=== PATIENT | female | born 1945 | race Caucasian/White ===

== ENCOUNTER 2024-11-12 09:28 | Day surgery (SDC) | payer MEDICARE, OTHER ==
[~2024-11-12] VITALS: Ht 152.4 cm; Wt 55.0 kg
[2024-11-12] VITALS (8 sets, daily range): BP systolic 134–190; BP diastolic 50–73; PULSE 53–65; RESP 9–16; TEMP 98.4; O2SAT 95–100
[2024-11-12] MEDS ORDERED: VALS160T30 PO (10:21)
[2024-11-12] MEDS ORDERED: LEVO88TA7 (10:21)
[2024-11-12] MEDS ORDERED: DOXA2TAB2 PO (10:21)
[2024-11-12] MEDS ORDERED: CLON0.1T2 PO (10:21)
[2024-11-12] MEDS ORDERED: GABA-530 PO (10:21)
[2024-11-12] MEDS ORDERED: METO-384 PO (10:23)
[2024-11-12] MEDS ORDERED: SERT-432 PO (10:24)
[2024-11-12] MEDS ORDERED: ASPI81TA52 PO (10:24)
[2024-11-12] MEDS ORDERED: CHOL20002 PO (10:25)
[2024-11-12] MEDS ORDERED: ATOR20TA66 PO (10:29)
[2024-11-12] MEDS ORDERED: FURO20TA4 PO (10:29)
[2024-11-12 10:33] LABS: EOSINOPHILS # (AUTO) 0.2 X10'3 (0-0.9); LYMPHOCYTES # (AUTO) 1.1 X10'3 (1.1-4.8)
[2024-11-12 10:35] LABS: BASOPHILS # (AUTO) 0.1 X10'3 (0-0.2); BASOPHILS % (AUTO) 2.1 % (0-1); EOSINOPHILS % (AUTO) 3.8 % (0-6); MEAN PLATELET VOLUME 9.7 FL (7.4-10.4); MONOCYTES # (AUTO) 0.6 X10'3 (0-0.9); MONOCYTES % (AUTO) 13.4 % (2-12); NEUTROPHILS # (AUTO) 2.6 X10'3 (1.8-7.7); NEUTROPHILS % (AUTO) 56.7 % (42-75); PLATELET COUNT 209 X10'3 (140-440); WHITE BLOOD COUNT 4.6 X10'3 (4.5-11.0)
[2024-11-12 10:41] LABS: ALBUMIN 3.6 G/DL (3.4-5.0); ANION GAP 7 (8-16); BLOOD UREA NITROGEN 39 MG/DL (7-18); BUN/CREATININE RATIO 26.7 (10.0-20.0); CHLORIDE 109 MMOL/L (99-107); CREATININE 1.46 MG/DL (0.40-0.90); GLUCOSE 97 MG/DL (70-104); MAGNESIUM 1.9 MG/DL (1.5-2.4); POTASSIUM 4.9 MMOL/L (3.5-5.1); SODIUM 138 MMOL/L (135-145); TOTAL CARBON DIOXIDE 22.5 MMOL/L (24-32); eCRCL 22 ML/MIN; eGFR 34 ML/MIN
[2024-11-12 10:43] LABS: INR 1.1 INR
[2024-11-12 10:53] LABS: HEMATOCRIT 35.1 % (35.0-45.0); HEMOGLOBIN 11.2 g/dl (12.0-16.0); MEAN CORPUSCULAR VOLUME 107.4 FL (78-98); RED BLOOD COUNT 3.26 X10'6 (4.20-5.60)
[2024-11-12 10:54] LABS: MEAN CORPUSCULAR HEMOGLOBIN 34.5 PG (27.0-31.0); MEAN CORPUSCULAR HGB CONC 32.1 g/dL (33.0-36.5); RED CELL DISTRIBUTION WIDTH 14.1 % (11.5-14.5)
[2024-11-12] MEDS: sodium bicarbonate 1meq/ml syr 150 ML in dextrose 5%-water 1,000 ML IV ONE (11:15)
[2024-11-12] MEDS: diphenhydrAMINE 25mg capsule PO PRN (11:15)
[2024-11-12] MEDS: normal saline 1,000 ML IV SCH (11:17)
[2024-11-12] MEDS ORDERED: midazolam 1 mg/ML 2ml injection ONE (13:19)
[2024-11-12] MEDS ORDERED: LIDOcaine 1% 30ml preserv. free vial ONE (13:19)
[2024-11-12] MEDS ORDERED: iohexol 350 MG/ML 50ML vial IV ONE (13:20)
[2024-11-12] MEDS ORDERED: heparin 1,000unit/ml 10ml vial 10 ML ONE (13:20)
[2024-11-12] MEDS ORDERED: fentaNYL/PF 50MCG/1 ML 2ML syringe ONE (13:20)
[2024-11-12] MEDS ORDERED: iohexol 350MG/ML 100ml bottle IV ONE (13:20)
[2024-11-12] MEDS ORDERED: protamine sulfate 10mg/ml inj. ONE (14:51)
[2024-11-12] MEDS: cloNIDine 0.1 mg tablet PO ONE (15:48)
[2024-11-12] MEDS ORDERED: HYDROcodone/acetaminophen 10/325mg tab PO PRN (15:50)
[2024-11-12] MEDS ORDERED: HYDROcodone/acetaminophen 5mg/325mg tablet PO PRN (15:50)
[2024-11-12] MEDS ORDERED: proCHLORperazine 10 MG/2 ml inj IV PRN (15:50)
[2024-11-12] MEDS ORDERED: ondansetron/PF 4mg/2ml inj IV PRN (15:50)
== END 2024-11-12 18:30 | disposition home or self-care (01) ==
LOC: SSTAY O 09:28
PROVIDERS: ATTEND Internal Medicine Cardiovascular Disease
DX: T82.857A Stenosis of other cardiac prosthetic devices, implants and grafts, initial encounter (principal); Y83.8 Other surgical procedures as the cause of abnormal reaction of the patient, or of later complication, without mention of misadventure at the time of the procedure; I27.20 Pulmonary hypertension, unspecified; I12.9 Hypertensive chronic kidney disease with stage 1 through stage 4 chronic kidney disease, or unspecified chronic kidney disease; N18.9 Chronic kidney disease, unspecified
CPT/HCPCS: 80048; 83735; 85025; 85610; 93005; 93460; 99152; 99153; A6258; C1725; C1751; C1887; C1894; J1644; J2003; J2250; J2720; J3010; J3490; J7030; J7070; Q0163; Q9967; Z7610

== ENCOUNTER 2024-12-02 10:38 | Outpatient (CLI) | payer MEDICARE, OTHER ==
[~2024-12-02] VITALS: Ht 152.4 cm; Wt 56.3 kg
[~2024-12-02 10:38] MED LIST: ASPI81TA52 PO; ATOR20TA66 PO; CHOL20002 PO; CLON0.1T2 PO; DOXA2TAB2 PO; FURO20TA4 PO; GABA-530 PO; IODIXANOL 320 MG/ML INFUS..BTL 100ML IV ONE; LEVO88TA7; METO-384 PO; SERT-432 PO; VALS160T30 PO
[2024-12-02 11:13] LABS: EOSINOPHILS # (AUTO) 0.1 X10'3 (0-0.9); MEAN PLATELET VOLUME 9.5 FL (7.4-10.4); MONOCYTES # (AUTO) 0.5 X10'3 (0-0.9)
[2024-12-02 11:15] LABS: BASOPHILS % (AUTO) 0.6 % (0-1); EOSINOPHILS % (AUTO) 3.6 % (0-6); LYMPHOCYTES # (AUTO) 0.8 X10'3 (1.1-4.8); LYMPHOCYTES % (AUTO) 23.5 % (21-51); MONOCYTES % (AUTO) 15.3 % (2-12); PLATELET COUNT 255 X10'3 (140-440); WHITE BLOOD COUNT 3.6 X10'3 (4.5-11.0)
[2024-12-02 11:26] LABS: APTT 25 SECONDS (22-32); PROTHROMBIN TIME 10.8 SECONDS (9.0-12.0)
[2024-12-02 11:27] LABS: ALANINE AMINOTRANSFERASE 24 U/L (12-78); ALBUMIN 3.5 G/DL (3.4-5.0); ALBUMIN/GLOBULIN RATIO 0.9 (1.1-1.5); ALKALINE PHOSPHATASE 68 IU/L (46-116); ANION GAP 7 (8-16); ASPARTATE AMINO TRANSFERASE 17 U/L (10-37); BILIRUBIN,TOTAL 0.5 MG/DL (0.1-1.0); BLOOD UREA NITROGEN 37 MG/DL (7-18); BUN/CREATININE RATIO 23.7 (10.0-20.0); CALCIUM 9.7 MG/DL (8.5-10.1); CHLORIDE 108 MMOL/L (99-107); CREATININE 1.56 MG/DL (0.40-0.90); GLUCOSE 92 MG/DL (70-104); POTASSIUM 4.6 MMOL/L (3.5-5.1); SODIUM 138 MMOL/L (135-145); TOTAL PROTEIN 7.2 G/DL (6.4-8.2); eGFR 32 ML/MIN
[2024-12-02 11:35] LABS: PRO BRAIN NATRIURETIC PEPTIDE 1615 PG/ML (0-450)
[2024-12-02 11:43] LABS: HEMATOCRIT 30.8 % (35.0-45.0); HEMOGLOBIN 10.3 g/dl (12.0-16.0); MEAN CORPUSCULAR HGB CONC 33.5 g/dL (33.0-36.5); MEAN CORPUSCULAR VOLUME 104.5 FL (78-98); RED BLOOD COUNT 2.95 X10'6 (4.20-5.60); RED CELL DISTRIBUTION WIDTH 14.3 % (11.5-14.5)
[2024-12-02 12:35] LABS: ACANTHOCYTES FEW; BURR CELLS 1+; GIANT PLATELET FEW; PLATELET ESTIMATE NORMAL; SCHISTOCYTES FEW; TOTAL CELLS COUNTED 100
[2024-12-02 12:36] LABS: LARGE PLATELETS FEW
[2024-12-02 13:52] VITALS: BP 178/41; PULSE 65; RESP 18; TEMP 96.4; O2SAT 99
== END 2024-12-02 23:59 | disposition home or self-care (01) ==
LOC: RAD 10:38
PROVIDERS: ATTEND Internal Medicine Cardiovascular Disease
DX: I08.8 Other rheumatic multiple valve diseases (principal); K80.20 Calculus of gallbladder without cholecystitis without obstruction; I35.0 Nonrheumatic aortic (valve) stenosis; K40.90 Unilateral inguinal hernia, without obstruction or gangrene, not specified as recurrent; R06.02 Shortness of breath; I65.29 Occlusion and stenosis of unspecified carotid artery; J98.11 Atelectasis; D73.9 Disease of spleen, unspecified; N28.1 Cyst of kidney, acquired; D25.9 Leiomyoma of uterus, unspecified
CPT/HCPCS: 36415; 71046; 80053; 83880; 85007; 85025; 85610; 85730; 93308; Q9967